=== PATIENT | female | born 1975 | race Asian ===

== ENCOUNTER 2017-03-16 23:06 | Emergency (ER) | END 2017-03-17 03:44 | disposition home or self-care (01) ==

== ENCOUNTER 2017-04-26 08:28 | Emergency (ER) | END 2017-04-26 10:03 | disposition home or self-care (01) ==

== ENCOUNTER 2017-07-23 09:26 | Emergency (ER) | END 2017-07-23 10:39 | disposition home or self-care (01) ==

== ENCOUNTER 2018-05-25 16:37 | Emergency (ER) | payer OTHER ==
[~2018-05-25] VITALS: Wt 78.0 kg
[~2018-05-25 16:37] MED LIST: CETI10CA PO; DOXY100C47; FLUT9.9S NASAL; GUAI5SYR2 PO; IBUP-1542 PO; IBUP-1561 PO; NASO17 NASAL; VITAMIN D3; [UNRECOGNIZED DRUG - CODE] PO
[2018-05-25 16:44] VITALS: BP 159/88; PULSE 101; RESP 18
[2018-05-25] MEDS ORDERED: CEFTRIAXONE 1 GM INJ IM ONE (19:00)
[2018-05-25] MEDS ORDERED: DIPHTH/TET/ACEL PERTUSS (ADULT) 0.5 ML VIAL IM* ONE (19:00)
[2018-05-25] MEDS ORDERED: TRIMETHOPRIM/SULFAMETHOX (DS) TAB PO ONE (19:00)
[2018-05-25] MEDS ORDERED: HYDROCODONE/APAP (5/325) TAB PO ONE (19:00)
[2018-05-25] MEDS ORDERED: CEPH-443 PO (19:23)
[2018-05-25] MEDS ORDERED: SULF1TAB31 PO (19:23)
[2018-05-25] MEDS ORDERED: TRAM50TA2 PO (19:24)
--- NOTE | 2018-05-25 19:28 | ERD ---
ER Documentation Chief Complaint Chief Complaint R HAND PAIN AND SWELLING X 1 WEEK HPI 42-year-old female presents with some skin lesions on her right hand and some pain of her right arm. She has a tender lymph node in the right axilla as well. She denies fevers, vomiting, shortness breath or chest pain. Symptoms started after picking some medhat in the dark and may have punctured her hand with spine from the plant or been bitten by an insect. Denies any contact with metal or wood or other objects other than the lemon tree. ROS All systems reviewed and are negative except as per history of present illness. Medications Home Meds Active Scripts Tramadol HCl (Tramadol HCl) 50 Mg Tablet, 50 MG PO Q4 PRN for PAIN, #15 TAB Prov:GENNA SAPP MD 05/25/18 Cephalexin* (Keflex*) 500 Mg Capsule, 500 MG PO QID for 7 Days, CAP Prov:GENNA SAPP MD 05/25/18 Sulfamethoxazole/Trimethoprim* (Bactrim Ds* Tablet) 1 Each Tablet, 1 TAB PO BID for 7 Days, #14 TAB Prov:GENNA SAPP MD 05/25/18 Ibuprofen* (Motrin*) 400 Mg Tab, 400 MG PO Q8 for 5 Days, #15 TAB Prov:REBEKA NAYAK MD 07/23/17 Guaifenesin-Dextromethorphan* (Robitussin* DM) 100MG/10MG/5ML Syrup, 5 ML PO Q4H PRN for COUGH, #4 OZ Prov:DARIEN VERMA PA-C 04/26/17 Cetirizine Hcl* (Zyrtec*) 10 Mg Capsule, 10 MG PO DAILY, #10 TAB.CHEW Prov:DARIEN VERMA PA-C 04/26/17 Fluticasone Propionate (Flonase Allergy Relief) 9.9 Ml [place].susp, 1 SPRAY NASAL BID, #1 BOTTLE TO EACH NOSTRIL Prov:DARIEN VERMA PA-C 04/26/17 Ibuprofen* (Motrin*) 600 Mg Tab, 600 MG PO Q6, #30 TAB Prov:DARIEN VERMA PA-C 03/17/17 Mometasone Furoate* (Nasonex*) 50 Mcg/[place] - 17 Gm [place].pump, 1 SPRAY NASAL BID, #1 BOTTLE IN EACH NOSTRIL Prov:DARIEN VERMA PA-C 03/17/17 Cetirizine Hcl* (Zyrtec*) 10 Mg Capsule, 10 MG PO DAILY, #10 TAB.CHEW Prov:DARIEN VERMA PA-C 03/17/17 Reported Medications [Vitamin D3] No Conflict Check 04/26/11 Doxycycline Hyclate (Doryx) 100 Mg Capsule. 04/26/11 Prednisone (Prednisone) 5 Mg/Dose-Pack Tab.ds.pk, 5 MG PO DAILY 03/11/11 Allergies Allergies: Coded Allergies: No Known Allergy (Unverified , 07/23/17) PMhx/Soc History of Surgery: Yes (D AND C AND BIOPSY, ) Anesthesia Reaction: No Hx Neurological Disorder: No Hx Respiratory Disorders: No Hx Cardiac Disorders: Yes (hypertension) Hx Psychiatric Problems: No Hx Miscellaneous Medical Probl: Yes (DM) Hx Alcohol Use: Yes Hx Substance Use: No Hx Tobacco Use: No Smoking Status: Former smoker Physical Exam Vitals Vital Signs Date Temp Pulse Resp B/P (MAP) Pulse Ox O2 O2 Flow FiO2 Time Delivery Rate 05/25/18 99.0 101 18 159/88 99 16:44 (111) Physical Exam Const: No acute distress Head: Atraumatic Eyes: Normal Conjunctiva ENT: Normal External Ears, Nose and Mouth. Neck: Full range of motion. No meningismus. Resp: Clear to auscultation bilaterally Cardio: Regular rate and rhythm, no murmurs Abd: Soft, non tender, non distended. Normal bowel sounds Skin: No petechiae or rashes. A few vesicular lesions some with opaque fluid on the right palm associated with likely previous puncture wounds. No significant erythema, induration, streaking. Back: No midline or flank tenderness Ext: No cyanosis, or edema Neur: Awake and alert Psych: Normal Mood and Affect Results 24 hrs Current Medications Medications Dose Sig/Felicia Start Time Status Last (Trade) Ordered Route PRN Stop Time Admin Dose Reason Admin Diphtheria/ 0.5 ml ONCE ONCE 05/25/18 DC 05/25/18 Tetanus/Acell IM* 19:00 05/25/18 19:10 Pertussis 19:01 (Adacel) Ceftriaxone 1 gm ONCE ONCE 05/25/18 DC 05/25/18 Sodium IM 19:00 05/25/18 19:11 (Rocephin) 19:01 1 tab ONCE ONCE 05/25/18 DC 05/25/18 Trimethoprim/ PO 19:00 05/25/18 19:11 19:01 Sulfamethoxaz ole (Bactrim (Ds)) 1 tab ONCE ONCE 05/25/18 DC 05/25/18 Acetaminophen PO 19:00 05/25/18 19:11 / 19:01 Hydrocodone Bitart (Pyrites (5/325)) Lidocaine 5 ml ONCE ONCE 05/25/18 05/25/18 (Xylocaine INFIL 19:30 05/25/18 19:11 1% (Mpf)) 19:31 Procedures/MDM Patient was given a tetanus booster. Was unroofed. There is scant purulent discharge. Wound was dressed. Patient was given Rocephin 1 g IM, Bactrim double strength by mouth Pyrites 5 mg as her mouth. Presents with signs and symptoms of infected puncture wound or possible reaction to insect bite or plant material. She will be treated with Bactrim, flex Keflex, warm compresses, return precautions for fevers, worsening redness, new worsening symptoms. She has reactive lymph node in the right axilla. She has no SIRS criteria, additional concerning findings or signs or symptoms. Patient should have a wound check in 2 days otherwise as directed. The patient was stable with no new complaints during the ER course. Clinically, there is no current evidence to suggest meningitis, sepsis, acute abdomen, pneumonia, stroke, acute coronary syndrome, pulmonary embolism, aortic dissection or any other emergent condition appearing to require further evaluation or hospitalization. Patient counseled regarding my diagnostic impression and care plan. Prior to discharge all questions answered. Pt agrees with treatment plan and understands strict return precautions. Pt is instructed to follow up with primary care provider within 24-48 hours. Precautionary instructions provided including instructions to return to the ER if not improving or for any worsening or changing symptoms or concerns. Departure Diagnosis: Primary Impression: Pain of hand Laterality: right Qualified Codes: M79.641 - Pain in right hand Condition: Stable Patient Instructions: Cellulitis Referrals: NO PRIMARY,CARE PHYSICIAN (PCP) Additional Instructions: Likely infection from puncture wound. No compresses. Recheck for worsening redness, fevers, new or worsening symptoms with primary care doctor. Take 600 mg ibuprofen every 6 hours as well for pain. GENNA SAPP MD May 25, 2018 19:28
[2018-05-25] MEDS ORDERED: LIDOCAINE 1% (MPF) 5 ML VIAL INFIL ONE (19:30)
== END 2018-05-25 19:50 | disposition home or self-care (01) ==
LOC: FTE 16:37
DX: M79.641 Pain in right hand (principal); E11.9 Type 2 diabetes mellitus without complications; I10 Essential (primary) hypertension; Z23 Encounter for immunization; Z87.891 Personal history of nicotine dependence
CPT/HCPCS: 90471; 90715; 96372; J0696; Z7502; Z7610